=== PATIENT | female | born 1950 | race Two or more races ===

== ENCOUNTER 2017-04-15 08:09 | Outpatient (CLI) | payer OTHER | END 2017-04-15 08:19 | disposition home or self-care (01) | LOC: SONOGRAMA 08:09 → MAMO-SONO 08:15 → SONOGRAMA 08:19 | DX: M25.552 Pain in left hip (principal) ==

== ENCOUNTER 2017-08-08 10:00 | Outpatient (CLI) | payer OTHER | END 2017-08-08 10:53 | disposition home or self-care (01) | LOC: MAMO-SONO 10:00 | DX: Z12.31 Encounter for screening mammogram for malignant neoplasm of breast (principal); N60.12 Diffuse cystic mastopathy of left breast; N60.11 Diffuse cystic mastopathy of right breast ==

== ENCOUNTER → 2017-09-23 | Outpatient (CLI) | payer OTHER | END | disposition home or self-care (01) | LOC: NUCLEAR 09-02 14:00 | DX: M81.0 Age-related osteoporosis without current pathological fracture (principal) ==

== ENCOUNTER 2018-01-16 11:12 | Outpatient (CLI) | payer OTHER | END 2018-01-16 16:52 | disposition home or self-care (01) | LOC: RAD 501 11:12 | DX: M54.2 Cervicalgia (principal); M54.6 Pain in thoracic spine; M25.551 Pain in right hip ==

== ENCOUNTER 2018-02-22 07:43 | Outpatient (CLI) | payer OTHER | END 2018-02-22 07:52 | disposition home or self-care (01) | LOC: LAB 07:43 | DX: D51.8 Other vitamin B12 deficiency anemias (principal); D51.3 Other dietary vitamin B12 deficiency anemia; K29.70 Gastritis, unspecified, without bleeding; E78.2 Mixed hyperlipidemia; D50.8 Other iron deficiency anemias; I10 Essential (primary) hypertension; D55.0 Anemia due to glucose-6-phosphate dehydrogenase [G6PD] deficiency; D51.0 Vitamin B12 deficiency anemia due to intrinsic factor deficiency; D51.1 Vitamin B12 deficiency anemia due to selective vitamin B12 malabsorption with proteinuria; E06.3 Autoimmune thyroiditis; E03.8 Other specified hypothyroidism; R97.0 Elevated carcinoembryonic antigen [CEA] ==

== ENCOUNTER 2018-03-08 09:50 | Outpatient (CLI) | payer OTHER | END 2018-03-08 09:52 | disposition home or self-care (01) | LOC: SONOGRAMA 09:50 | DX: E04.8 Other specified nontoxic goiter (principal); E03.8 Other specified hypothyroidism; D51.8 Other vitamin B12 deficiency anemias; D51.3 Other dietary vitamin B12 deficiency anemia; I10 Essential (primary) hypertension; K29.70 Gastritis, unspecified, without bleeding; E78.2 Mixed hyperlipidemia ==

== ENCOUNTER → 2018-05-19 | Outpatient (CLI) | payer OTHER | END | disposition home or self-care (01) | LOC: NUCLEAR 08:45 | DX: I73.9 Peripheral vascular disease, unspecified (principal) ==

== ENCOUNTER 2018-06-12 07:15 | Outpatient (CLI) | payer OTHER | END 2018-06-12 08:55 | disposition home or self-care (01) | LOC: LAB 07:15 | DX: D51.8 Other vitamin B12 deficiency anemias (principal); D51.3 Other dietary vitamin B12 deficiency anemia; I10 Essential (primary) hypertension; K29.70 Gastritis, unspecified, without bleeding; E78.2 Mixed hyperlipidemia; D50.8 Other iron deficiency anemias; R97.0 Elevated carcinoembryonic antigen [CEA]; E72.11 Homocystinuria; E72.12 Methylenetetrahydrofolate reductase deficiency ==

== ENCOUNTER 2018-11-22 08:49 | Outpatient (CLI) | payer OTHER | END 2018-11-22 09:01 | disposition home or self-care (01) | LOC: MAMO-SONO 08:49 | DX: Z12.31 Encounter for screening mammogram for malignant neoplasm of breast (principal); Z87.898 Personal history of other specified conditions; C50.919 Malignant neoplasm of unspecified site of unspecified female breast; N63.10 Unspecified lump in the right breast, unspecified quadrant; N63.20 Unspecified lump in the left breast, unspecified quadrant; N64.4 Mastodynia; N60.12 Diffuse cystic mastopathy of left breast; N60.11 Diffuse cystic mastopathy of right breast ==

== ENCOUNTER 2018-12-11 07:23 | Outpatient (CLI) | payer OTHER | END 2018-12-11 07:30 | disposition home or self-care (01) | LOC: LAB 07:23 | DX: E72.11 Homocystinuria (principal); R97.0 Elevated carcinoembryonic antigen [CEA]; D51.3 Other dietary vitamin B12 deficiency anemia; I10 Essential (primary) hypertension; K29.70 Gastritis, unspecified, without bleeding; E78.2 Mixed hyperlipidemia; D50.8 Other iron deficiency anemias; D51.8 Other vitamin B12 deficiency anemias ==

== ENCOUNTER 2018-12-22 08:57 | Outpatient (CLI) | payer OTHER | END 2018-12-22 08:59 | disposition home or self-care (01) | LOC: RAD 08:57 | DX: M50.00 Cervical disc disorder with myelopathy, unspecified cervical region (principal); M50.10 Cervical disc disorder with radiculopathy, unspecified cervical region ==

== ENCOUNTER → 2019-04-13 07:01 | Outpatient (CLI) | payer OTHER | END | disposition home or self-care (01) | LOC: LAB 07:01 | DX: D50.8 Other iron deficiency anemias (principal); I10 Essential (primary) hypertension; E72.11 Homocystinuria; E72.12 Methylenetetrahydrofolate reductase deficiency; D51.3 Other dietary vitamin B12 deficiency anemia; K29.70 Gastritis, unspecified, without bleeding; E78.2 Mixed hyperlipidemia; R97.0 Elevated carcinoembryonic antigen [CEA]; D51.8 Other vitamin B12 deficiency anemias; D51.0 Vitamin B12 deficiency anemia due to intrinsic factor deficiency; D51.1 Vitamin B12 deficiency anemia due to selective vitamin B12 malabsorption with proteinuria ==

== ENCOUNTER 2019-08-03 07:44 | Outpatient (CLI) | payer OTHER | END 2019-08-03 10:21 | disposition home or self-care (01) | LOC: TOM 07:44 | PROVIDERS: ATTEND Internal Medicine Gastroenterology | DX: K57.32 Diverticulitis of large intestine without perforation or abscess without bleeding (principal) | CPT/HCPCS: 74177; Q9965 ==

== ENCOUNTER 2019-12-01 10:38 | Outpatient (CLI) | payer OTHER | END 2019-12-01 10:41 | disposition home or self-care (01) | LOC: RAD 10:38 | PROVIDERS: ATTEND Ophthalmology | DX: R07.89 Other chest pain (principal); H25.012 Cortical age-related cataract, left eye; D68.8 Other specified coagulation defects ==

== ENCOUNTER 2020-02-29 14:01 | Outpatient (CLI) | payer OTHER | END 2020-02-29 14:38 | disposition home or self-care (01) | LOC: NUCLEAR 14:01 → MAMO-SONO 03-04 08:45 | PROVIDERS: ATTEND Internal Medicine Geriatric Medicine | DX: M15.0 Primary generalized (osteo)arthritis (principal); M81.0 Age-related osteoporosis without current pathological fracture ==

== ENCOUNTER 2020-03-11 07:55 | Outpatient (CLI) | payer OTHER | END 2020-03-11 08:04 | disposition home or self-care (01) | LOC: MAMO-SONO 07:55 | PROVIDERS: ATTEND Internal Medicine Geriatric Medicine | DX: R92.0 Mammographic microcalcification found on diagnostic imaging of breast (principal); N60.11 Diffuse cystic mastopathy of right breast; N60.12 Diffuse cystic mastopathy of left breast; Z12.31 Encounter for screening mammogram for malignant neoplasm of breast; N64.4 Mastodynia ==

== ENCOUNTER 2020-03-15 07:27 | Outpatient (CLI) | payer OTHER | END 2020-03-15 07:32 | disposition home or self-care (01) | LOC: LAB 07:27 | PROVIDERS: ATTEND Internal Medicine Hematology & Oncology | DX: D50.8 Other iron deficiency anemias (principal); I10 Essential (primary) hypertension; D51.8 Other vitamin B12 deficiency anemias; D51.1 Vitamin B12 deficiency anemia due to selective vitamin B12 malabsorption with proteinuria; D51.0 Vitamin B12 deficiency anemia due to intrinsic factor deficiency; D68.59 Other primary thrombophilia; E72.11 Homocystinuria; R97.0 Elevated carcinoembryonic antigen [CEA]; R97.8 Other abnormal tumor markers; E72.12 Methylenetetrahydrofolate reductase deficiency; D51.3 Other dietary vitamin B12 deficiency anemia; K29.70 Gastritis, unspecified, without bleeding; E78.2 Mixed hyperlipidemia; E78.00 Pure hypercholesterolemia, unspecified ==

== ENCOUNTER 2020-10-28 08:29 | Outpatient (CLI) | payer OTHER | END 2020-10-28 08:37 | disposition home or self-care (01) | LOC: LAB 08:29 | PROVIDERS: ATTEND Internal Medicine Hematology & Oncology | DX: I10 Essential (primary) hypertension (principal); D50.8 Other iron deficiency anemias; R79.89 Other specified abnormal findings of blood chemistry; R74.02 Elevation of levels of lactic acid dehydrogenase [LDH]; K76.89 Other specified diseases of liver; D51.8 Other vitamin B12 deficiency anemias; D51.1 Vitamin B12 deficiency anemia due to selective vitamin B12 malabsorption with proteinuria; R97.0 Elevated carcinoembryonic antigen [CEA]; R97.8 Other abnormal tumor markers; D68.59 Other primary thrombophilia; D51.3 Other dietary vitamin B12 deficiency anemia; K29.70 Gastritis, unspecified, without bleeding; E78.2 Mixed hyperlipidemia ==

== ENCOUNTER 2020-11-14 08:22 | Outpatient (CLI) | payer OTHER | END 2020-11-14 08:28 | disposition home or self-care (01) | LOC: RAD 08:22 | PROVIDERS: ATTEND Physical Medicine & Rehabilitation | DX: M54.2 Cervicalgia (principal); M62.830 Muscle spasm of back ==

== ENCOUNTER → 2021-04-28 07:36 | Outpatient (CLI) | payer OTHER | END | disposition home or self-care (01) | LOC: LAB 07:36 | PROVIDERS: ATTEND Internal Medicine Hematology & Oncology | DX: D60.8 Other acquired pure red cell aplasias (principal); R79.9 Abnormal finding of blood chemistry, unspecified; I10 Essential (primary) hypertension; R74.02 Elevation of levels of lactic acid dehydrogenase [LDH]; K76.89 Other specified diseases of liver; D50.8 Other iron deficiency anemias; D51.8 Other vitamin B12 deficiency anemias; D51.1 Vitamin B12 deficiency anemia due to selective vitamin B12 malabsorption with proteinuria; D51.0 Vitamin B12 deficiency anemia due to intrinsic factor deficiency; D68.59 Other primary thrombophilia; R97.0 Elevated carcinoembryonic antigen [CEA]; R97.8 Other abnormal tumor markers; D51.3 Other dietary vitamin B12 deficiency anemia; K29.70 Gastritis, unspecified, without bleeding; E78.2 Mixed hyperlipidemia ==

== ENCOUNTER 2021-05-06 08:50 | Outpatient (CLI) | payer OTHER | END 2021-05-06 09:10 | disposition home or self-care (01) | LOC: MAMO-SONO 08:50 | PROVIDERS: ATTEND Internal Medicine Geriatric Medicine | DX: Z12.31 Encounter for screening mammogram for malignant neoplasm of breast (principal); C50.919 Malignant neoplasm of unspecified site of unspecified female breast; N63.0 Unspecified lump in unspecified breast; N64.4 Mastodynia; N60.12 Diffuse cystic mastopathy of left breast; N60.11 Diffuse cystic mastopathy of right breast ==

== ENCOUNTER 2021-06-29 09:30 | Outpatient (CLI) | payer OTHER | END 2021-06-29 09:40 | disposition home or self-care (01) | LOC: PPH VACUNA 09:30 | PROVIDERS: ATTEND Emergency Medicine Pediatric Emergency Medicine | DX: Z23 Encounter for immunization (principal) ==

== ENCOUNTER 2021-08-04 07:49 | Outpatient (CLI) | payer OTHER | END 2021-08-04 07:56 | disposition home or self-care (01) | LOC: TOM 07:49 | PROVIDERS: ATTEND Internal Medicine Gastroenterology | DX: R10.9 Unspecified abdominal pain (principal); K57.30 Diverticulosis of large intestine without perforation or abscess without bleeding | CPT/HCPCS: 74177; Q9965 ==

== ENCOUNTER 2021-12-03 09:13 | Outpatient (CLI) | payer OTHER | END 2021-12-03 09:23 | disposition home or self-care (01) | LOC: PPH VACUNA 09:13 | PROVIDERS: ATTEND Emergency Medicine Pediatric Emergency Medicine | DX: Z23 Encounter for immunization (principal) ==

== ENCOUNTER → 2022-03-09 10:00 | Outpatient (CLI) | payer OTHER | END | disposition home or self-care (01) | LOC: LAB 10:00 | PROVIDERS: ATTEND Internal Medicine Hematology & Oncology | DX: D50.8 Other iron deficiency anemias (principal); R79.9 Abnormal finding of blood chemistry, unspecified; R74.02 Elevation of levels of lactic acid dehydrogenase [LDH]; K76.89 Other specified diseases of liver; D51.8 Other vitamin B12 deficiency anemias; D68.59 Other primary thrombophilia; D51.0 Vitamin B12 deficiency anemia due to intrinsic factor deficiency; D51.1 Vitamin B12 deficiency anemia due to selective vitamin B12 malabsorption with proteinuria; D51.3 Other dietary vitamin B12 deficiency anemia; K29.70 Gastritis, unspecified, without bleeding; E78.2 Mixed hyperlipidemia; R97.0 Elevated carcinoembryonic antigen [CEA]; I11.9 Hypertensive heart disease without heart failure; I35.1 Nonrheumatic aortic (valve) insufficiency; I25.119 Atherosclerotic heart disease of native coronary artery with unspecified angina pectoris ==

== ENCOUNTER 2022-05-18 07:25 | Outpatient (CLI) | payer OTHER | END 2022-05-18 07:28 | disposition home or self-care (01) | LOC: NUCLEAR 07:25 | PROVIDERS: ATTEND Internal Medicine Cardiovascular Disease | DX: I25.10 Atherosclerotic heart disease of native coronary artery without angina pectoris (principal) | CPT/HCPCS: 78452; 93017; A9500; J0153 ==

== ENCOUNTER 2022-06-10 13:01 | Outpatient (CLI) | payer OTHER | END 2022-06-10 13:05 | disposition home or self-care (01) | LOC: NUCLEAR 13:01 | PROVIDERS: ATTEND Internal Medicine Geriatric Medicine | DX: M81.0 Age-related osteoporosis without current pathological fracture (principal); M15.0 Primary generalized (osteo)arthritis ==

== ENCOUNTER 2022-06-23 08:10 | Outpatient (CLI) | payer OTHER | END 2022-06-23 08:18 | disposition home or self-care (01) | LOC: MAMO-SONO 08:10 | PROVIDERS: ATTEND Internal Medicine Geriatric Medicine | DX: Z12.31 Encounter for screening mammogram for malignant neoplasm of breast (principal); C50.919 Malignant neoplasm of unspecified site of unspecified female breast; N63.0 Unspecified lump in unspecified breast; N64.4 Mastodynia; N60.12 Diffuse cystic mastopathy of left breast; N60.11 Diffuse cystic mastopathy of right breast ==

== ENCOUNTER 2022-07-27 07:20 | Outpatient (CLI) | payer OTHER | END 2022-07-27 07:27 | disposition home or self-care (01) | LOC: LAB 07:20 | PROVIDERS: ATTEND Internal Medicine Hematology & Oncology | DX: D50.8 Other iron deficiency anemias (principal); R79.9 Abnormal finding of blood chemistry, unspecified; R74.02 Elevation of levels of lactic acid dehydrogenase [LDH]; K76.89 Other specified diseases of liver; D51.8 Other vitamin B12 deficiency anemias; E55.9 Vitamin D deficiency, unspecified; D68.61 Antiphospholipid syndrome; R97.0 Elevated carcinoembryonic antigen [CEA]; R97.8 Other abnormal tumor markers; D51.0 Vitamin B12 deficiency anemia due to intrinsic factor deficiency; D51.1 Vitamin B12 deficiency anemia due to selective vitamin B12 malabsorption with proteinuria; D51.3 Other dietary vitamin B12 deficiency anemia; K29.70 Gastritis, unspecified, without bleeding; E78.2 Mixed hyperlipidemia; I35.1 Nonrheumatic aortic (valve) insufficiency; I11.9 Hypertensive heart disease without heart failure; I25.810 Atherosclerosis of coronary artery bypass graft(s) without angina pectoris ==

== ENCOUNTER 2023-04-18 07:13 | Outpatient (CLI) | payer OTHER ==
[2023-04-18 08:29] LABS: HEMATOCRIT 34.1 % (36.0-45.00); HEMOGLOBIN 11.9 g/dL (12.0-15.00); MEAN CELL VOLUME 88.5 fL (80.00-100.00); MEAN CORPUSCULAR HEMOGLOBIN 30.9 pg (27.00-32.0); MEAN CORPUSCULAR HGB CONC 34.9 g/dl (32.0-36.0); PLATELET COUNT 308 K/uL (150-450); RED BLOOD COUNT 3.85 M/uL (4.00-6.00); RED CELL DISTRIBUTION WIDTH 12.6 % (11.5-14.5)
[2023-04-18 09:00] LABS: ALBUMIN 3.7 gm/dL (3.4-5.0); BILIRUBIN TOTAL 0.61 mg/dL (0.3-1.2); CALCIUM 9.7 mg/dL (8.5-10.1); CREATININE SERUM 1.01 mg/dL (0.55-1.02); GFR 54.19; GLOBULINA 3.3 G/DL (2.4-3.5); POTASSIUM 4.06 mEq/L (3.5-5.1)
[2023-04-18 10:42] LABS: FOLIC ACID > 20.00 ng/ml (4.78-20); VITAMIN D3 25 HYDROXY 38.37 ng/ml (30-120)
[2023-04-18 14:50] LABS: MANUAL PLATELET COUNT 670
[2023-04-18 14:52] LABS: PLATELET ESTIMATE INCREASED (NORMAL)
== END 2023-04-18 07:23 | disposition home or self-care (01) ==
LOC: LAB 07:13
PROVIDERS: ATTEND Internal Medicine Hematology & Oncology
DX: D50.8 Other iron deficiency anemias (principal); R74.02 Elevation of levels of lactic acid dehydrogenase [LDH]; I10 Essential (primary) hypertension; K76.89 Other specified diseases of liver; E55.9 Vitamin D deficiency, unspecified; E72.11 Homocystinuria; D51.0 Vitamin B12 deficiency anemia due to intrinsic factor deficiency; D51.1 Vitamin B12 deficiency anemia due to selective vitamin B12 malabsorption with proteinuria; E72.12 Methylenetetrahydrofolate reductase deficiency; D51.3 Other dietary vitamin B12 deficiency anemia; K29.70 Gastritis, unspecified, without bleeding; E78.2 Mixed hyperlipidemia

== ENCOUNTER 2023-08-10 08:28 | Outpatient (CLI) | payer OTHER | END 2023-08-10 08:34 | disposition home or self-care (01) | LOC: MAMO-SONO 08:28 | PROVIDERS: ATTEND Internal Medicine Hematology & Oncology | DX: N63.0 Unspecified lump in unspecified breast (principal); N64.4 Mastodynia; D51.0 Vitamin B12 deficiency anemia due to intrinsic factor deficiency; D68.61 Antiphospholipid syndrome; E72.12 Methylenetetrahydrofolate reductase deficiency; D51.3 Other dietary vitamin B12 deficiency anemia; I10 Essential (primary) hypertension; K29.70 Gastritis, unspecified, without bleeding; E78.2 Mixed hyperlipidemia; R97.0 Elevated carcinoembryonic antigen [CEA]; Z12.31 Encounter for screening mammogram for malignant neoplasm of breast ==

== ENCOUNTER 2023-10-17 07:46 | Outpatient (CLI) | payer OTHER ==
[2023-10-17 09:04] LABS: PH,URINE 5.5 (5.0-8.0); URINE APPEARANCE Clear; URINE BILIRRUBIN Negative (NEGATIVE); URINE BLOOD Negative; URINE COLOR Yellow; URINE GLUCOSE Negative (NEGATIVE); URINE KETONE Negative (NEGATIVE); URINE LEUKOCYTE Negative; URINE NITRATE Negative; URINE PROTEIN Negative (NEGATIVE); URINE UROBILINOGEN 0.2 E.U./dl
[2023-10-17 09:07] LABS: URINE BACTERIA 309.8 uL (0.0-1933); URINE EPITHELIAL CELLS 14.6 uL (0.0-38.8); URINE RBC 3.8 uL (0.0-20.8); URINE WBC 4.4 uL (0.0-23.2)
[2023-10-17 09:10] LABS: HEMATOCRIT 34.4 % (36.0-45.00); HEMOGLOBIN 11.9 g/dL (12.0-15.00); MEAN CELL VOLUME 88.9 fL (80.00-100.00); MEAN CORPUSCULAR HEMOGLOBIN 30.6 pg (27.00-32.0); MEAN CORPUSCULAR HGB CONC 34.5 g/dl (32.0-36.0); PLATELET COUNT 322 K/uL (150-450); RED BLOOD COUNT 3.87 M/uL (4.00-6.00); RED CELL DISTRIBUTION WIDTH 13.2 % (11.5-14.5)
[2023-10-17 10:21] LABS: ALBUMIN 3.6 gm/dL (3.4-5.0); BILIRUBIN TOTAL 0.57 mg/dL (0.3-1.2); CALCIUM 9.5 mg/dL (8.5-10.1); CHOL HDL RATIO 2.4 (0-5.0); CREATININE SERUM 0.86 mg/dL (0.55-1.02); GFR 65.05; GLOBULINA 3.3 G/DL (2.4-3.5); POTASSIUM 3.8 mEq/L (3.5-5.1); TOTAL PROTEIN 6.9 gm/dL (6.4-8.2)
[2023-10-17 14:02] LABS: FOLIC ACID > 20.00 ng/ml (4.78-20); VITAMIN D3 25 HYDROXY 38.94 ng/ml (30-120)
[2023-10-17 21:06] LABS: TSH 1.97 uIU/mL (0.358-3.74)
[2023-10-18 09:11] LABS: HOMOCYSTEINE 9.2 umol/L (0.0-19.2)
[2023-10-18 11:07] LABS: CA 125 11.8 U/mL (0.0-38.1); CA 15-3 23.6 U/mL (0.0-25.0); CA 19-9 < 2 U/mL (0-35)
== END 2023-10-17 07:53 | disposition home or self-care (01) ==
LOC: LAB 07:46
PROVIDERS: ATTEND Internal Medicine Hematology & Oncology
DX: D50.9 Iron deficiency anemia, unspecified (principal); E03.9 Hypothyroidism, unspecified; E78.2 Mixed hyperlipidemia; I11.9 Hypertensive heart disease without heart failure; E56.8 Deficiency of other vitamins; N39.0 Urinary tract infection, site not specified; Z12.11 Encounter for screening for malignant neoplasm of colon; R19.5 Other fecal abnormalities; E55.9 Vitamin D deficiency, unspecified; N19 Unspecified kidney failure; E11.9 Type 2 diabetes mellitus without complications; D51.0 Vitamin B12 deficiency anemia due to intrinsic factor deficiency; D51.1 Vitamin B12 deficiency anemia due to selective vitamin B12 malabsorption with proteinuria; D68.61 Antiphospholipid syndrome; E72.11 Homocystinuria; E72.12 Methylenetetrahydrofolate reductase deficiency; K29.70 Gastritis, unspecified, without bleeding; R97.0 Elevated carcinoembryonic antigen [CEA]

== ENCOUNTER 2023-12-30 15:14 | Emergency (ER) | payer OTHER ==
[~2023-12-30] VITALS: Ht 154.9 cm; Wt 61.2 kg
[2023-12-30] MEDS ORDERED: LOSARTAN-HCTZ1 EACH PO (15:57)
[2023-12-30] MEDS ORDERED: GLUMETZA500 MG PO (15:58)
[2023-12-30] MEDS ORDERED: METOPROLOL SUCC25 MG PO (15:58)
[2023-12-30] MEDS ORDERED: ABANEU-SL TABL1 EACH SL (15:58)
[2023-12-30] MEDS ORDERED: REPATHA SU140 MG/1 M SUBCUTANEO (15:58)
[2023-12-30] MEDS ORDERED: BUTALB/ACETAMINOPHEN/CAFFEINE 1 TAB TABLET PO ONE (16:30)
[2023-12-30 16:47] LABS: HEMATOCRIT 32.8 % (36.0-45.00); HEMOGLOBIN 11.2 g/dL (12.0-15.00); MEAN CELL VOLUME 89.5 fL (80.00-100.00); MEAN CORPUSCULAR HEMOGLOBIN 30.7 pg (27.00-32.0); MEAN CORPUSCULAR HGB CONC 34.3 g/dl (32.0-36.0); PLATELET COUNT 332 K/uL (150-450); RED BLOOD COUNT 3.67 M/uL (4.00-6.00)
[2023-12-30] MEDS ORDERED: BUTALB-ACETAMI1 EACH PO (17:59)
== END 2023-12-30 18:13 | disposition home or self-care (01) ==
LOC: ER 15:15
PROVIDERS: General Practice
DX: R51.9 Headache, unspecified (principal); Z20.822 Contact with and (suspected) exposure to COVID-19; I10 Essential (primary) hypertension

== ENCOUNTER 2024-01-11 14:32 | Outpatient (CLI) | payer OTHER ==
[~2024-01-11 14:32] MED LIST: ABANEU-SL TABL1 EACH SL; BUTALB-ACETAMI1 EACH PO; GLUMETZA500 MG PO; LOSARTAN-HCTZ1 EACH PO; METOPROLOL SUCC25 MG PO; REPATHA SU140 MG/1 M SUBCUTANEO
== END 2024-01-11 15:07 | disposition home or self-care (01) ==
LOC: RAD 14:32
PROVIDERS: ATTEND Physical Medicine & Rehabilitation
DX: M54.2 Cervicalgia (principal)

== ENCOUNTER 2024-02-11 11:23 | Emergency (ER) | payer OTHER ==
[~2024-02-11] VITALS: Ht 154.9 cm; Wt 61.2 kg
[2024-02-11] MEDS ORDERED: KETOROLAC TROMETHAMINE 30 MG VIAL IM ONE (13:00)
[2024-02-11] MEDS ORDERED: ORPHENADRINE CITRATE 30 MG/ML AMPUL IM SCH (13:00)
[2024-02-11] MEDS ORDERED: ORPHENADRINE CITRATE 30 MG/ML AMPUL ONE (13:02)
[2024-02-11] MEDS ORDERED: KETOROLAC TROMETHAMINE 60 MG VIAL IM ONE (13:02)
== END 2024-02-11 14:54 | disposition home or self-care (01) ==
LOC: ER 11:23
DX: S29.8XXA Other specified injuries of thorax, initial encounter (principal); S21.90XA Unspecified open wound of unspecified part of thorax, initial encounter; W06.XXXA Fall from bed, initial encounter; Y93.89 Activity, other specified; Y92.098 Other place in other non-institutional residence as the place of occurrence of the external cause; Y99.8 Other external cause status; M54.2 Cervicalgia
CPT/HCPCS: 72040; 72070; 96372; 99283; J1885; J2360

== ENCOUNTER 2024-04-16 08:26 | Outpatient (CLI) | payer OTHER ==
[2024-04-16 09:29] LABS: HEMATOCRIT 33.6 % (36.0-45.00); HEMOGLOBIN 11.6 g/dL (12.0-15.00); MEAN CELL VOLUME 88.2 fL (80.00-100.00); MEAN CORPUSCULAR HEMOGLOBIN 30.4 pg (27.00-32.0); MEAN CORPUSCULAR HGB CONC 34.4 g/dl (32.0-36.0); PLATELET COUNT 285 K/uL (150-450); RED BLOOD COUNT 3.81 M/uL (4.00-6.00); RED CELL DISTRIBUTION WIDTH 12.2 % (11.5-14.5)
[2024-04-16 10:15] LABS: ALBUMIN 3.5 gm/dL (3.4-5.0); BILIRUBIN TOTAL 0.49 mg/dL (0.3-1.2); CREATININE SERUM 0.96 mg/dL (0.55-1.02); GFR 57.29; GLOBULINA 3.6 G/DL (2.4-3.5); POTASSIUM 3.94 mEq/L (3.5-5.1); TOTAL PROTEIN 7.1 gm/dL (6.4-8.2)
[2024-04-16 12:17] LABS: FOLIC ACID > 20.00 ng/ml (4.78-20); VITAMIN D3 25 HYDROXY 63.17 ng/ml (30-120)
[2024-04-17 09:05] LABS: CA 125 14.1 U/mL (0.0-38.1); CA 15-3 25.2 U/mL (0.0-25.0); CA 19-9 < 2 U/mL (0-35); HOMOCYSTEINE 10.6 umol/L (0.0-19.2)
== END 2024-04-16 08:31 | disposition home or self-care (01) ==
LOC: LAB 08:26
PROVIDERS: ATTEND Internal Medicine Hematology & Oncology
DX: D51.0 Vitamin B12 deficiency anemia due to intrinsic factor deficiency (principal); D51.1 Vitamin B12 deficiency anemia due to selective vitamin B12 malabsorption with proteinuria; D68.61 Antiphospholipid syndrome; D51.3 Other dietary vitamin B12 deficiency anemia; I10 Essential (primary) hypertension; K29.70 Gastritis, unspecified, without bleeding; E78.2 Mixed hyperlipidemia; R97.0 Elevated carcinoembryonic antigen [CEA]; D50.8 Other iron deficiency anemias; R74.02 Elevation of levels of lactic acid dehydrogenase [LDH]; K76.89 Other specified diseases of liver; D51.8 Other vitamin B12 deficiency anemias; E55.9 Vitamin D deficiency, unspecified; C50.919 Malignant neoplasm of unspecified site of unspecified female breast; C25.9 Malignant neoplasm of pancreas, unspecified; C56.9 Malignant neoplasm of unspecified ovary

== ENCOUNTER 2024-06-11 08:45 | Outpatient (CLI) | payer OTHER | END 2024-06-11 08:51 | disposition home or self-care (01) | LOC: SONOGRAMA 08:45 | PROVIDERS: ATTEND Internal Medicine Rheumatology | DX: M65.812 Other synovitis and tenosynovitis, left shoulder (principal) ==

== ENCOUNTER → 2024-07-03 | Outpatient (CLI) | payer OTHER | END | disposition home or self-care (01) | LOC: MAMO-SONO 09:47 | PROVIDERS: ATTEND Internal Medicine Geriatric Medicine | DX: Z12.31 Encounter for screening mammogram for malignant neoplasm of breast (principal); C50.919 Malignant neoplasm of unspecified site of unspecified female breast; N63.0 Unspecified lump in unspecified breast; N64.4 Mastodynia; N60.11 Diffuse cystic mastopathy of right breast; N60.12 Diffuse cystic mastopathy of left breast ==

== ENCOUNTER 2024-07-23 07:29 | Outpatient (CLI) | payer OTHER ==
[2024-07-23 08:45] LABS: BASO % 0.9 % (0.1-1.2); EOS # 0.18 (0.04-0.54); EOS % 4.2 % (0.7-7.0); HEMATOCRIT 35.2 % (34.1-44.9); LYMPH # 1.74 (1.18-3.74); LYMPH % 40.6 % (19.3-53.1); MEAN CORPUSCULAR HEMOGLOBIN 29.9 pg (25.6-32.2); MONO # 0.28 (0.24-0.82); MONO % 6.5 % (4.7-12.5); NEUT # 2.03 (1.56-6.13); NEUT % 47.3 % (34.0-71.1); PLATELET COUNT 329 K/uL (163-369); RED BLOOD COUNT 4.01 M/uL (3.93-5.22); RED CELL DISTRIBUTION WIDTH 12.5 % (11.6-14.4)
[2024-07-23 09:49] LABS: ALBUMIN 3.5 gm/dL (3.4-5.0); BILIRUBIN TOTAL 0.51 mg/dL (0.3-1.2); CALCIUM 9.5 mg/dL (8.5-10.1); CREATININE SERUM 0.8 mg/dL (0.55-1.02); GFR 70.51; GLOBULINA 3.6 G/DL (2.4-3.5); POTASSIUM 4.27 mEq/L (3.5-5.1); TOTAL PROTEIN 7.1 gm/dL (6.4-8.2)
== END 2024-07-23 07:33 | disposition home or self-care (01) ==
LOC: LAB 07:29
PROVIDERS: ATTEND Internal Medicine Hematology & Oncology
DX: D50.8 Other iron deficiency anemias (principal); I10 Essential (primary) hypertension; R74.02 Elevation of levels of lactic acid dehydrogenase [LDH]; K76.89 Other specified diseases of liver; R97.0 Elevated carcinoembryonic antigen [CEA]; R97.8 Other abnormal tumor markers; D51.0 Vitamin B12 deficiency anemia due to intrinsic factor deficiency; D51.1 Vitamin B12 deficiency anemia due to selective vitamin B12 malabsorption with proteinuria; D68.61 Antiphospholipid syndrome; D51.3 Other dietary vitamin B12 deficiency anemia; K29.70 Gastritis, unspecified, without bleeding; E78.2 Mixed hyperlipidemia

== ENCOUNTER 2024-07-26 09:28 | Outpatient (CLI) | payer OTHER | END 2024-07-26 09:29 | disposition home or self-care (01) | LOC: NUCLEAR 09:28 | PROVIDERS: ATTEND Internal Medicine Geriatric Medicine | DX: M81.0 Age-related osteoporosis without current pathological fracture (principal) ==

== ENCOUNTER 2024-11-02 07:13 | Outpatient (CLI) | payer OTHER | END 2024-11-02 07:14 | disposition home or self-care (01) | LOC: NUCLEAR 07:13 | DX: G45.1 Carotid artery syndrome (hemispheric) (principal) ==

== ENCOUNTER 2024-12-05 18:03 | Emergency (ER) | payer OTHER ==
[~2024-12-05] VITALS: Ht 154.9 cm; Wt 61.2 kg
[2024-12-05] MEDS ORDERED: CHILDREN'S ASPI81 MG PO (18:43)
[2024-12-05] MEDS ORDERED: MECLIZINE HCL 12.5 MG TABLET PO ONE (19:15)
[2024-12-05 21:05] LABS: BASO % 0.6 % (0.1-1.2); EOS # 0.08 (0.04-0.54); EOS % 1.5 % (0.7-7.0); LYMPH # 2.24 (1.18-3.74); LYMPH % 43.1 % (19.3-53.1); MEAN PLATELET VOLUME 9.60 fl (9.4-12.4); MONO # 0.46 (0.24-0.82); MONO % 8.8 % (4.7-12.5); NEUT # 2.38 (1.56-6.13); NEUT % 45.8 % (34.0-71.1); RED CELL DISTRIBUTION WIDTH 11.9 % (11.6-14.4)
[2024-12-05 21:22] LABS: INR 1.05
[2024-12-05 21:25] LABS: D DIMER 0.47 MG/L
[2024-12-05 21:33] LABS: ALT/SGPT 40.0 U/L (12-78); AST/SGOT 27.0 U/L (15-37); BILIRUBIN TOTAL 0.31 mg/dL (0.3-1.2); BUN CREA RATIO 16.0 (7.0-25.0); CREATININE SERUM 0.99 mg/dL (0.55-1.02); GFR 55.14; GLOBULINA 3.9 G/DL (2.4-3.5); GLUCOSE FASTING 122.0 mg/dL (65-100); OSMOLALITY SERUM 280.0 MOSM/KG (275-295)
[2024-12-05 22:41] LABS: URINE APPEARANCE Clear; URINE BILIRRUBIN Negative (NEGATIVE); URINE BLOOD Negative; URINE COLOR Yellow; URINE GLUCOSE Negative (NEGATIVE); URINE KETONE Negative (NEGATIVE); URINE LEUKOCYTE Small; URINE NITRATE Negative; URINE PROTEIN Negative (NEGATIVE); URINE UROBILINOGEN 0.2 E.U./dl
[2024-12-05 22:44] LABS: URINE BACTERIA 400.6 uL (0.0-1933); URINE EPITHELIAL CELLS 40.1 uL (0.0-38.8); URINE WBC 59.8 uL (0.0-23.2)
[2024-12-05 22:46] LABS: URINE CAST 0.14 uL (0.0-1.40); URINE RBC 1.6 uL (0.0-20.8)
[2024-12-05 23:05] LABS: COVID-19 AG NEGATIVE (NEGATIVE)
[2024-12-05] MEDS ORDERED: CEFTRIAXONE SODIUM 1,000 MG VIAL IV ONE (23:15)
[2024-12-05] MEDS ORDERED: PEPCID AC20 MG PO (23:28)
[2024-12-05] MEDS ORDERED: BACTRIM DS TAB1 EACH PO (23:28)
== END 2024-12-06 | disposition home or self-care (01) ==
LOC: ER 18:03
PROVIDERS: General Practice
DX: R53.1 Weakness (principal); R51.9 Headache, unspecified; I10 Essential (primary) hypertension; Z20.822 Contact with and (suspected) exposure to COVID-19
CPT/HCPCS: 36415; 70450; 71045; 93005; 96365; 99284; J0696

== ENCOUNTER → 2025-01-02 | Emergency (ER) | payer OTHER ==
[~2025-01-02] VITALS: Ht 154.9 cm; Wt 61.2 kg
[~2025-01-02] MED LIST changes: +0.9 % SODIUM CHLORIDE 1,000 ML IV ONE; +BACTRIM DS TAB1 EACH PO; +CEFTRIAXONE SODIUM 2,000 MG VIAL IV ONE; +CHILDREN'S ASPI81 MG PO; +PEPCID AC20 MG PO
[2025-01-02 08:00] LABS: BASO % 0.4 % (0.1-1.2); EOS # 0.07 (0.04-0.54); EOS % 0.8 % (0.7-7.0); LYMPH # 1.94 (1.18-3.74); LYMPH % 23.3 % (19.3-53.1); MEAN PLATELET VOLUME 9.70 fl (9.4-12.4); MONO # 0.58 (0.24-0.82); MONO % 7.0 % (4.7-12.5); NEUT # 5.69 (1.56-6.13); NEUT % 68.3 % (34.0-71.1); RED CELL DISTRIBUTION WIDTH 11.9 % (11.6-14.4)
[2025-01-02 08:25] LABS: INR 1.09
[2025-01-02 08:27] LABS: ALT/SGPT 45.0 U/L (12-78); AST/SGOT 29.0 U/L (15-37); BILIRUBIN TOTAL 0.52 mg/dL (0.3-1.2); BUN CREA RATIO 15.0 (7.0-25.0); CREATININE SERUM 1.15 mg/dL (0.55-1.02); GFR 46.38; GLOBULINA 3.8 G/DL (2.4-3.5); GLUCOSE FASTING 105.0 mg/dL (65-100); OSMOLALITY SERUM 278.0 MOSM/KG (275-295)
[2025-01-02 08:43] LABS: URINE APPEARANCE Clear; URINE BILIRRUBIN Negative (NEGATIVE); URINE BLOOD Negative; URINE COLOR Yellow; URINE GLUCOSE Negative (NEGATIVE); URINE KETONE Negative (NEGATIVE); URINE LEUKOCYTE Negative; URINE NITRATE Negative; URINE PROTEIN Negative (NEGATIVE); URINE UROBILINOGEN 0.2 E.U./dl
[2025-01-02 08:48] LABS: URINE BACTERIA 26.3 uL (0.0-1933); URINE EPITHELIAL CELLS 4.4 uL (0.0-38.8); URINE WBC 3.3 uL (0.0-23.2)
[2025-01-02 08:52] LABS: URINE CAST 0.00 uL (0.0-1.40); URINE RBC 1.3 uL (0.0-20.8)
[2025-01-02 11:24] LABS: BASO % 0.3 % (0.1-1.2); EOS # 0.03 (0.04-0.54); EOS % 0.5 % (0.7-7.0); LYMPH # 1.65 (1.18-3.74); LYMPH % 25.0 % (19.3-53.1); MEAN PLATELET VOLUME 9.40 fl (9.4-12.4); MONO # 0.41 (0.24-0.82); MONO % 6.2 % (4.7-12.5); NEUT # 4.47 (1.56-6.13); NEUT % 67.8 % (34.0-71.1); RED CELL DISTRIBUTION WIDTH 11.9 % (11.6-14.4)
== END | disposition home or self-care (01) ==
LOC: ER 05:45
PROVIDERS: Emergency Medicine; General Practice
DX: K57.92 Diverticulitis of intestine, part unspecified, without perforation or abscess without bleeding (principal); K62.5 Hemorrhage of anus and rectum; R10.9 Unspecified abdominal pain; R11.10 Vomiting, unspecified; A08.8 Other specified intestinal infections; I10 Essential (primary) hypertension
CPT/HCPCS: 36415; 74176; 96365; 96366; 99284; J0696; J7030

== ENCOUNTER 2025-01-07 06:12 | Outpatient (CLI) | payer OTHER ==
[~2025-01-07 06:12] MED LIST changes: -0.9 % SODIUM CHLORIDE 1,000 ML IV ONE; -CEFTRIAXONE SODIUM 2,000 MG VIAL IV ONE
[2025-01-07 07:50] LABS: BASO % 0.9 % (0.1-1.2); EOS # 0.11 (0.04-0.54); EOS % 3.3 % (0.7-7.0); LYMPH # 1.34 (1.18-3.74); LYMPH % 40.6 % (19.3-53.1); MEAN PLATELET VOLUME 10.00 fl (9.4-12.4); MONO # 0.31 (0.24-0.82); MONO % 9.4 % (4.7-12.5); NEUT # 1.50 (1.56-6.13); NEUT % 45.5 % (34.0-71.1); RED CELL DISTRIBUTION WIDTH 12.1 % (11.6-14.4)
[2025-01-07 08:33] LABS: % SATURACION 21.0 % (15-50); ALT/SGPT 89.0 U/L (12-78); AST/SGOT 79.0 U/L (15-37); BILIRUBIN TOTAL 0.46 mg/dL (0.3-1.2); BUN CREA RATIO 14.0 (7.0-25.0); CREATININE SERUM 0.96 mg/dL (0.55-1.02); FE 56.0 ug/dl (50-170); GFR 57.13; GLOBULINA 3.2 G/DL (2.4-3.5); GLUCOSE FASTING 104.0 mg/dL (65-100); LDH 168.0 U/L (84-246); OSMOLALITY SERUM 280.0 MOSM/KG (275-295)
[2025-01-08 10:15] LABS: FOLIC ACID > 20.00 ng/ml (4.78-20)
== END 2025-01-07 06:21 | disposition home or self-care (01) ==
LOC: LAB 06:12
PROVIDERS: ATTEND Internal Medicine Hematology & Oncology
DX: D50.8 Other iron deficiency anemias (principal); I10 Essential (primary) hypertension; R74.02 Elevation of levels of lactic acid dehydrogenase [LDH]; K76.89 Other specified diseases of liver; D51.3 Other dietary vitamin B12 deficiency anemia; D52.9 Folate deficiency anemia, unspecified; D68.59 Other primary thrombophilia; E72.11 Homocystinuria; R97.0 Elevated carcinoembryonic antigen [CEA]; R97.8 Other abnormal tumor markers; D51.0 Vitamin B12 deficiency anemia due to intrinsic factor deficiency; D51.1 Vitamin B12 deficiency anemia due to selective vitamin B12 malabsorption with proteinuria; E72.12 Methylenetetrahydrofolate reductase deficiency; K29.70 Gastritis, unspecified, without bleeding; E78.2 Mixed hyperlipidemia